=== PATIENT | female | born 1990 | race Hispanic/Latino ===

== ENCOUNTER 2023-04-30 02:19 | Emergency (ER) | payer SELFPAY ==
[2023-04-30 02:30] VITALS: BP 148/128
--- NOTE | 2023-04-30 02:34 | ED.GENMED ---
History of Present Illness
General
Chief Complaint: Breathing Problem
Source: patient
Time Seen by Provider: 04/30/23 02:31
History of Present Illness
History of Present Illness:
33-year-old female presents to the emergency room with her significant other for evaluation of shortness of breath, cough and vomiting. Symptoms began just about an hour or so ago. Patient unable to provide history due to continuous coughing.
Past History
Past History
ED Past Medical History: None
ED Past Surgical History: None
Social History
Tobacco: Non-smoker
Alcohol: None
Drug: None
Personal: Single
Living: with family
Employment: Employed
Phy Exam
Physical Exam
Physical Exam:
General: Awake, coughing, holding heart throat, retching
Vitals: unremarkable
Head: Atraumatic
Eyes: Pupils equal, EOMI
Throat: Airway intact, no exudates
Neck: Trachea midline
Lungs: No wheezing
Heart: Tachycardic, regular rate, no murmurs
Abd: Soft, Nontender, No pulsatile mass
Neuro: Nonfocal
Skin: Warm, dry, no rash
Extremities: pulses equal b/l, no edema
Course
Orders/Labs/Results
Orders:
Orders
04/30/23 02:33
0.9% Sodium Chloride 1000 ml [Nss] 1,000 ml IV BOLUS
Diphenhydramine [Benadryl] 25 mg IV NOW STA
Prochlorperazine [Compazine] 10 mg IV NOW STA
CR Chest - 2 Views Urgent
Comment:
Reason For Exam: cough, sob
04/30/23 02:34
Test Result ONCE
04/30/23 02:35
Electrocardiogram (*1) Urgent
Reason for Study: Shortness of Breath
EKG- Treatment ONCE
02/03/24 02:38
COVID-19 Antigen Urgent
Source: Nasal Swab
Influenza A+B Rapid Molecular Urgent
TAO Source: Nasal Swab
Specimen Description:
04/30/23 02:39
Complete Blood Count/With Diff Urgent
Comprehensive Metabolic Panel Urgent
HCG, Serum Qualitative Screen Urgent
Lipase Urgent
04/30/23 02:47
Ipratropium/Albuterol Sulfate [Duoneb] 3 ml .ROUTE .STK-MED ONE
Ipratropium/Albuterol Sulfate [Duoneb] 3 ml INH R NOW ONE
Mag Hydrox/Al Hydrox/Simeth [Maalox] 30 ml Phenobarb/Hyoscy/Atropine/Scop [] 10 ml Viscous Lidocaine 2% [Xylocaine Viscous Cup] 10 ml PO NOW
04/30/23 02:49
Mag Hydrox/Al Hydrox/Simeth [Maalox] 30 ml .ROUTE .STK-MED ONE
Phenobarb/Hyoscy/Atropine/Scop [] 10 ml .ROUTE .STK-MED ONE
Viscous Lidocaine 2% [Xylocaine Viscous Cup] 15 ml .ROUTE .STK-MED ONE
04/30/23 03:27
Ketorolac [Toradol] 15 mg IV NOW STA
Abnormal Lab Results
04/30/23
02:39
Abs Immat Gran (auto) 0.1 H 10^3/uL
(0-0.05)
Absolute Neuts (auto) 7.8 H 10^3/uL
(1.4-6.5)
Absolute Monos (auto) 0.8 H 10^3/uL
(0.1-0.6)
Immature Gran % 1.1 H %
(0-0.5)
Neutrophils % 76.6 H %
(42.2-75.2)
Lymphocytes % 12.4 L %
(20.5-51.1)
Carbon Dioxide 20 L mmol/L
(22-30)
Glucose 107 H mg/dl
(70-99)
Total Protein 8.5 H g/dl
(6.3-8.2)
04/30/23 02:39
04/30/23 02:39
Vital Signs
Initial and Last Documented VS:
Initial Vital Signs
Temp Pulse Resp BP Pulse Ox
98.6 F 144 24 148/128 97
04/30/23 02:30 04/30/23 02:30 04/30/23 02:30 04/30/23 02:30 04/30/23 02:30
Last Documented Vital Signs
Temp Pulse Resp BP Pulse Ox
98.6 F 103 20 107/63 95
04/30/23 02:30 04/30/23 04:03 04/30/23 03:45 04/30/23 04:03 04/30/23 04:03
MDM/Problems Addressed
Differential Diagnosis Includes:
gastritis, cholecystitis, anxiety
MDM/Problems Addressed:
Patient presents hyperventilating, vomiting. After treatment she is much more relaxed. She is communicating easily. She feels much better. Labs are reassuring. I Lonnie exam is benign. Patient stable for discharge home suspect she had a viral
illness with nausea vomiting which precipitated her to become quite upset began hyperventilating.
*Radiology
Radiology exam reviewed: preliminary read by ED provider (Personally viewed patient's chest x-ray, no acute disease)
*Pulse Oximetry
Patient hypoxic: no
*EKG
Interpreted by ED Provider?: Yes
Interpretation: abnormal
Comparison EKG: no comparison EKG present
Heart Rate: 112
Rate: tachycardiac
Rhythm: sinus tachycardia
Archer: normal axis
Interval: normal interval
QRS Pattern: normal QRS
Ischemia: no ischemia
*[employer] Operator Interpretation
Rate: tachycardiac
Heart Rate: 112
Rhythm: sinus tachycardia
*Critical Care Note
Total Time (30-74mins, 75-104mins- exclusive of procedures): Not Applicable
ED Attending Note
-
Portions of this chart may have been created with voice recognition software.� Occasional wrong word or��sound alike� substitutions may have occurred due to the inherent limitations of voice recognition software.
Discharge Plan
Departure
Patient Disposition: Home (Routine Discharge)
Date of Disposition: 04/30/23
Time of Disposition: 04:16
Patient with high blood pressure during this ER visit?: No
Condition: Good
Discharge Problem:
Influenza A
Instructions: Flu, Adult ED
Referrals:
NONE,* [Family Provider] -
Activity Restrictions/Additional Instructions:
You can take Tylenol and Motrin for fever, muscle aches.
Interventions
Interventions:
*Risk Screen - Suicide Last Done: 04/30/23 02:45
*General Assessment Last Done: 04/30/23 02:58
*Neglect/Abuse Screening Last Done: 04/30/23 02:45
ED- Fall Risk Assessment Last Done: 04/30/23 02:58
*ED COVID-19 Vaccine History Last Done: 04/30/23 02:58
*Nursing Disposition Last Done: 04/30/23 04:00
ED- Cardiac Assessment Last Done: 04/30/23 02:30
ED- Pulmonary Assessment Last Done: 04/30/23 02:30
Discharge Date and Time
Discharge Date/Time: 04/30/23 04:00
Print Language: MALAYSIAN
[2023-04-30] MEDS: NSS 1000 IV (02:42)
[2023-04-30] MEDS: BENADRYL 25 MG IV (02:43)
[2023-04-30] MEDS: COMPAZINE 10 MG IV (02:43)
[2023-04-30] MEDS: DUONEB 3 ML INH (02:51)
[2023-04-30] MEDS: MAALOX 50 PO (02:51)
[2023-04-30 03:01] LABS: % Basophils 0.3 % (0-2); % Eosinophils 1.9 % (0-6); % Immature Granulocytes 1.1 % (0-0.5); % Lymphocytes 12.4 % (20.5-51.1); % Monocytes 7.7 % (1.7-9.3); % Neutrophils 76.6 % (42.2-75.2); Absolute Eosinophils 0.2 10^3/uL (0-0.7); Absolute Immature Granulocytes 0.1 10^3/uL (0-0.05); Absolute Lymphocytes 1.3 10^3/uL (1.2-3.4); Absolute Monocytes 0.8 10^3/uL (0.1-0.6); Absolute Neutrophils 7.8 10^3/uL (1.4-6.5); Hemoglobin 14.9 g/dL (12.0-16.0); Mean Corp Hgb Conc. 34.7 g/dL (33.0-37.0); Mean Corpuscular Hgb 28.1 pg (27.0-31.0); Mean Corpuscular Volume 81.1 fL (81.0-99.0); Mean Platelet Volume 9.7 fL (7.4-10.4); Nucleated Red Blood Cells % 0 %; Platelet Count 324 10^3/uL (130-400); Red Cell Dist. Width 14.2 % (11.5-14.5); White Blood Cell Count 10.2 10^3/uL (4.8-10.8)
[2023-04-30 03:13] LABS: COVID-19 Antigen Negative (Negative)
[2023-04-30 03:14] LABS: HCG, Serum Qualitative Screen Negative
[2023-04-30 03:20] LABS: ALT (SGPT) 26 U/L (0-35); AST (SGOT) 26 U/L (14-36); Alkaline Phosphatase 76 U/L (38-126); Blood Urea Nitrogen 11 mg/dl (7-17); Calcium 9.7 mg/dl (8.4-10.2); Carbon Dioxide 20 mmol/L (22-30); Chloride 104 mmol/L (98-107); Glucose 107 mg/dl (70-99); Lipase 70 U/L (23-300); Potassium 4.3 mmol/L (3.5-5.1); Sodium 137 mmol/L (135-145); Total Bilirubin 0.6 mg/dl (0.2-1.3); Total Protein 8.5 g/dl (6.3-8.2); eGFR > 60.00
[2023-04-30 03:21] VITALS: BP 105/84
[2023-04-30 04:03] VITALS: BP 107/63
[2023-04-30] MEDS: TORADOL 15 MG IV (04:03)
== END 2023-04-30 04:00 | disposition home or self-care (01) ==
LOC: EMR 02:19
PROVIDERS: EMERGENCY PHYSICIAN Emergency Medicine
DX: J10.1 Influenza due to other identified influenza virus with other respiratory manifestations (principal); R11.2 Nausea with vomiting, unspecified; R00.0 Tachycardia, unspecified; Z11.52 Encounter for screening for COVID-19
CPT/HCPCS: 99284; 96374; 96375 ×2; 96361; 94640; 71046; 80053; 83690; 84703; 85025; 87502; 87811; 93005

== ENCOUNTER → 2024-05-17 07:10 | Outpatient (REF) | payer OTHER, SELFPAY | LOC: PNTC 07:10 | PROVIDERS: ATTENDING PHYSICIAN Student in an Organized Health Care Education/Training Program | DX: O09.529 Supervision of elderly multigravida, unspecified trimester (principal) | CPT/HCPCS: 76805 ==

== ENCOUNTER → 2024-06-13 13:12 | Outpatient (REF) | payer OTHER, SELFPAY | LOC: PNTC 13:12 | PROVIDERS: ATTENDING PHYSICIAN Student in an Organized Health Care Education/Training Program | DX: O09.529 Supervision of elderly multigravida, unspecified trimester (principal) | CPT/HCPCS: 76811; 76817 ==

== ENCOUNTER → 2024-07-31 14:04 | Outpatient (REF) | payer OTHER, SELFPAY | LOC: PNTC 14:04 | PROVIDERS: ATTENDING PHYSICIAN Obstetrics & Gynecology | DX: O09.529 Supervision of elderly multigravida, unspecified trimester (principal) | CPT/HCPCS: 76816 ==

== ENCOUNTER → 2024-09-17 13:59 | Outpatient (REF) | payer OTHER, SELFPAY | LOC: PNTC 13:59 | PROVIDERS: ATTENDING PHYSICIAN Obstetrics & Gynecology | DX: O09.529 Supervision of elderly multigravida, unspecified trimester (principal) | CPT/HCPCS: 76816 ==

== ENCOUNTER 2024-10-30 08:07 | Inpatient (IN) | payer OTHER, SELFPAY ==
[2024-10-30 08:22] VITALS: BP 125/70; BMI 34.0
[2024-10-30 09:23] LABS: Hematocrit 34.8 % (37.0-47.0); Hemoglobin 10.5 g/dL (12.0-16.0); Mean Corp Hgb Conc. 30.2 g/dL (33.0-37.0); Mean Corpuscular Volume 78.0 fL (81.0-99.0); Nucleated Red Blood Cells % 0 %; Platelet Count 219 10^3/uL (130-400)
[2024-10-30] MEDS: CYTOTEC 25 MICROGRAM VAG (09:27)
[2024-10-30] MEDS: LR 1000 IV (10:15)
[2024-10-30 10:57] LABS: Anisocytosis 2+; Microcytosis 1+; Normal RBC Morphology No; Stomatocytes 1+
[2024-10-30] MEDS: CYTOTEC 50 MICROGRAM PO ×3 (13:28→21:45)
[2024-10-30] MEDS: PENICILLIN IV ×3 (19:55→19:56)
[2024-10-31] MEDS: LR 1000 IV ×3 (01:49→09:37)
[2024-10-31] MEDS: PENICILLIN 110 UNITS IV (01:50)
[2024-10-31] MEDS: PITOCIN 30 UNITS/NSS 500 ML IV (01:50)
[2024-10-31] MEDS: CYTOTEC PO ×2 (02:43→05:50)
[2024-10-31] MEDS: PENICILLIN IV ×2 (02:55)
[2024-10-31] MEDS: PENICILLIN 55 UNITS IV (05:50)
[2024-10-31] MEDS: STADOL 1 MG IV (06:17)
[2024-10-31] MEDS: SUBLIMAZE 100 MCG EPIDURAL (08:12)
[2024-10-31] MEDS: FENTANYL/BUPIVACAINE 100 EPIDURAL (08:12)
[2024-10-31] MEDS: COLACE 100 MG PO (20:30)
[2024-11-01] MEDS: MOTRIN 600 MG PO (05:43)
[2024-11-01 05:53] LABS: Hematocrit 34.3 % (37.0-47.0); Hemoglobin 10.5 g/dL (12.0-16.0)
[2024-11-01] MEDS: PRENATAL PLUS 1 TABLET PO (12:03)
[2024-11-01] MEDS: COLACE PO (12:06)
[2024-11-01] MEDS: COLACE 100 MG PO (20:08)
[2024-11-02] MEDS: PRENATAL PLUS 1 TABLET PO (08:18)
[2024-11-02] MEDS: COLACE 100 MG PO (08:18)
[2024-11-02 11:13] LABS: Syphilis/T. pallidum Ab Reflex Negative (Negative)
== END 2024-11-02 13:05 | disposition home or self-care (01) | DRG 806 ==
LOC: LDRP 08:07
PROVIDERS: Obstetrics & Gynecology; ADMITTING PHYSICIAN Obstetrics & Gynecology
PROC: 3E0P7VZ Introduction of Hormone into Female Reproductive, Via Natural or Artificial Opening (ICD-10-PCS; 2024-10-30)
PROC: 10E0XZZ Delivery of Products of Conception, External Approach (ICD-10-PCS; 2024-10-31)
DX: O48.0 Post-term pregnancy (principal); O41.03X0 Oligohydramnios, third trimester, not applicable or unspecified; Z37.0 Single live birth; Z3A.40 40 weeks gestation of pregnancy; O99.824 Streptococcus B carrier state complicating childbirth; O77.0 Labor and delivery complicated by meconium in amniotic fluid
CPT/HCPCS: 36415; 85014; 85018; 85025; 86780; 86850; 86900; 86901